=== PATIENT | female | born 1975 | race Asian ===

== ENCOUNTER → 2016-07-19 | Outpatient (CLI) | payer MEDICAID | LOC: CLAB 09:44 → EDSTATUS 09:55 → CIMAGING 09:56 | PROVIDERS: ATTEND Family Medicine | DX: S32.040A Wedge compression fracture of fourth lumbar vertebra, initial encounter for closed fracture (principal) | CPT/HCPCS: 72100-PO ==

== ENCOUNTER → 2016-08-30 | Outpatient (CLI) | payer MEDICAID | LOC: FIMAGING 07:54 | PROVIDERS: ATTEND Psychiatry & Neurology Neurology | DX: M48.06 Spinal stenosis, lumbar region (principal); M51.26 Other intervertebral disc displacement, lumbar region; M12.88 Other specific arthropathies, not elsewhere classified, other specified site; M99.73 Connective tissue and disc stenosis of intervertebral foramina of lumbar region ==

== ENCOUNTER → 2017-10-25 | Outpatient (CLI) | payer OTHER | LOC: CIMAGING 11:05 | PROVIDERS: ATTEND Family Medicine | DX: Z12.31 Encounter for screening mammogram for malignant neoplasm of breast (principal) ==